=== PATIENT | male | born 1990 | race Caucasian/White ===

== ENCOUNTER 2019-09-28 06:57 | Emergency (ER) | payer BC, MEDICAID, OTHER ==
[~2019-09-28] VITALS: Ht 180.3 cm; Wt 107.0 kg
[2019-09-28 08:43] VITALS: BP 132/78
[2019-09-28] MEDS ORDERED: ALPRAZOLAM 0.5 MG TABLET PO ONE (08:45)
== END 2019-09-28 08:43 | disposition home or self-care (01) ==
LOC: ER 06:57
DX: F41.9 Anxiety disorder, unspecified (principal)
CPT/HCPCS: 99284

== ENCOUNTER 2020-10-20 11:56 | Emergency (ER) | payer MEDICAID ==
[~2020-10-20] VITALS: Ht 180.3 cm; Wt 124.0 kg
[2020-10-20] MEDS ORDERED: SODIUM CHLORIDE 0.9% 1,000 ML IV ONE (13:30)
[2020-10-20] MEDS ORDERED: LORAZEPAM 2MG/ML CPJ IV NR (13:30)
[2020-10-20 13:39] LABS: BASOPHILS % 0.8 % (0.0-2.0); EOSINOPHILS % 0.4 % (0.0-5.0); HEMATOCRIT. 47.6 % (42.0-52.0); HEMOGLOBIN. 16.2 g/dL (14.0-18.0); MEAN CORPUSCULAR HEMOGLOBIN 29.5 pg (28.0-32.0); MEAN CORPUSCULAR VOLUME 86.6 fL (80.0-94.0); MEAN PLATELET VOLUME 8.7 fl (7.4-10.4); MONOCYTES % 8.3 % (2.0-8.0); NEUTROPHILS % 61.5 % (40.0-76.0); PLATELET 269 x1000/uL (130-400); RED CELL DISTRIBUTION WIDTH 12.9 % (11.6-14.6)
[2020-10-20 13:41] LABS: CHLORIDE 104 mEq/L (98-107)
[2020-10-20 13:45] LABS: ETHANOL BLOOD < 10 mg/dL
[2020-10-20 13:48] VITALS: BP 162/102
[2020-10-20 15:48] LABS: CLARITY URINE CLEAR (CLEAR); COLOR URINE YELLOW (YELLOW); KETONES URINE NEGATIVE (NEGATIVE); LEUKOCYTE ESTERASE URINE NEGATIVE (NEGATIVE); NITRITE URINE NEGATIVE (NEGATIVE); OCCULT BLOOD URINE NEGATIVE (NEGATIVE); PH URINE 6.5 (4.5-8.0); PROTEIN URINE NEGATIVE (NEGATIVE); SPECIFIC GRAVITY URINE 1.028 (1.005-1.030); UROBILINOGEN URINE 0.2 E.U./dL (0.2-1.0)
[2020-10-20 15:56] LABS: *AMPHETAMINES SCREEN URINE NEGATIVE (NEGATIVE); *BARBITURATES SCREEN URINE PRESUMTIVE POSITIVE (NEGATIVE); *BENZODIAZEPINES SCREEN URINE NEGATIVE (NEGATIVE)
[2020-10-20 15:57] LABS: *COCAINE SCREEN URINE NEGATIVE (NEGATIVE); CANNABINOID URINE SCREEN PRESUMTIVE POSITIVE (NEGATIVE); METHADONE URINE SCREEN NEGATIVE (NEGATIVE); OPIATES URINE SCREEN NEGATIVE (NEGATIVE); PHENCYCLIDINE URINE SCREEN NEGATIVE (NEGATIVE)
== END 2020-10-20 14:40 | disposition left against medical advice (07) ==
LOC: ER 11:56
DX: F10.239 Alcohol dependence with withdrawal, unspecified (principal); R03.0 Elevated blood-pressure reading, without diagnosis of hypertension; Y90.0 Blood alcohol level of less than 20 mg/100 ml; F20.9 Schizophrenia, unspecified; F17.210 Nicotine dependence, cigarettes, uncomplicated; Z71.6 Tobacco abuse counseling
CPT/HCPCS: 36415; 80053; 80305; 80320; 81003; 85025; 93005; 96361; 96374; 99284; 99406; J2060; Z7610; G0480